=== PATIENT | male | born 1960 | race Caucasian/White ===

== ENCOUNTER 2017-06-06 09:10 | Emergency (ER) | payer OTHER ==
[2017-06-06 10:59] VITALS: BP 126/75
== END 2017-06-06 10:59 | disposition home or self-care (01) ==
LOC: ED 09:10
DX: J18.9 Pneumonia, unspecified organism (principal); F17.200 Nicotine dependence, unspecified, uncomplicated; Z71.6 Tobacco abuse counseling
CPT/HCPCS: 99406; J7613; J7644; Q0092

== ENCOUNTER 2018-04-07 17:24 | Emergency (ER) | payer OTHER ==
[~2018-04-07] VITALS: Ht 175.3 cm; Wt 55.0 kg
[2018-04-07 17:33] VITALS: Ht 175.3 cm; Wt 55.0 kg
[2018-04-07 18:57] VITALS: BP 123/73
== END 2018-04-07 18:57 | disposition home or self-care (01) ==
LOC: ED 17:24
DX: S61.102A Unspecified open wound of left thumb with damage to nail, initial encounter (principal); J45.909 Unspecified asthma, uncomplicated; F17.210 Nicotine dependence, cigarettes, uncomplicated; W22.8XXA Striking against or struck by other objects, initial encounter; Y93.89 Activity, other specified; Y92.89 Other specified places as the place of occurrence of the external cause; Y99.8 Other external cause status
CPT/HCPCS: 90715; A4570; Q0092

== ENCOUNTER 2019-01-24 20:02 | Emergency (ER) | payer OTHER ==
[~2019-01-24] VITALS: Ht 175.3 cm; Wt 54.4 kg
[2019-01-24 20:09] VITALS: Ht 175.3 cm; Wt 54.4 kg
[2019-01-24 21:06] LABS: CALCIUM 9.3 mg/dL (8.5-10.1); CARBON DIOXIDE 29.3 mmol/L (21-32); CHLORIDE SERUM 105 mmol/L (98-107); CREATININE SERUM 0.9 mg/dL (0.7-1.3); GFR1 > 60 mL/min; GLUCOSE SERUM 85 mg/dL (74-106); SODIUM SERUM 141 mmol/L (136-145)
[2019-01-24 21:36] LABS: ALBUMIN 3.6 g/dL (3.4-5.0); BILIRUBIN DIRECT 0.06 mg/dL (0.0-0.2); BILIRUBIN TOTAL 0.16 mg/dL (0.20-1.00); TOTAL PROTEIN, SERUM 7.2 g/dL (6.4-8.2)
[2019-01-24 21:55] VITALS: BP 131/46
== END 2019-01-24 21:55 | disposition home or self-care (01) ==
LOC: ED 20:02
PROVIDERS: Emergency Medicine
DX: B35.1 Tinea unguium (principal); J45.909 Unspecified asthma, uncomplicated

== ENCOUNTER 2019-03-13 10:27 | Inpatient (IN) | payer OTHER ==
[~2019-03-13] VITALS: Ht 175.3 cm; Wt 54.0 kg
[2019-03-13 10:43] VITALS: Ht 175.3 cm; Wt 54.0 kg
--- NOTE | 2019-03-13 10:43 | NUR ---
PT CAME TO ED VIA [facility]. WAS AT [facility] WHEN SUDDENLY FELT CHEST PAIN 02/22. NON RADIATING. SHARP AND FEELS LIKE IT COMES AND GOES. PAIN WORSE WITH INSPIRATION. SLIGHT SOB ON SCENE, PRESENTS NOW WITH SHALLOW BREATH. LUNGS HAVE WHEEZE AND PAIN WITH DEEP RESPIRATION. STATES TODAY HAS COUGH AND CHILLS. WAS ANXIOUS ON SCENE BUT NOW IS OKAY. 18 G TO RT AC NOTED AND PLACED BY AGRICULTURE INSPECTOR. FLUSHED WELL WITH 10CC OF NS WITH GOOD BLOOD RETURN. NO S/S OF INFILTRATION WHEN NOTED. DENIES ABD PAIN, BUT POINTS TO EPIGASTRIC AREA WHEN STATING WHERE PAIN IS AND ANTERIOR CHEST. ABLE TO FOLLOW COMMANDS.
--- NOTE | 2019-03-13 10:43 | NUR ---
WHEN PATIENT ARRIVED, APPLIED O2 NC SAT WAS 94% MD MADE AWARE AND OKAYED
[2019-03-13 11:06] LABS: BASOPHIL % 0.4 % (0-2); PLATELET COUNT 263 x10^3mcL (130-400); RED CELL DISTRIBUTION WIDTH 13.8 % (11.5-14.5)
[2019-03-13 11:18] LABS: CALCIUM 8.2 mg/dL (8.5-10.1); CARBON DIOXIDE 28.2 mmol/L (21-32); CHLORIDE SERUM 104 mmol/L (98-107); CREATININE SERUM 0.9 mg/dL (0.7-1.3); GFR1 > 60 mL/min; GLUCOSE SERUM 77 mg/dL (74-106); POTASSIUM SERUM 4.3 mmol/L (3.5-5.1); SODIUM SERUM 139 mmol/L (136-145)
[2019-03-13 11:22] LABS: ALBUMIN 3.6 g/dL (3.4-5.0); ALKALINE PHOSPHATASE 83 U/L (46-116); ALT/SGPT 15 U/L (16-63); AST/SGOT 20 U/L (15-37); BILIRUBIN TOTAL 0.4 mg/dL (0.20-1.00); CHOLESTEROL 159 mg/dL (<200); HDL CHOLESTEROL 57 mg/dL (40-60); LIPASE 98 IU/L (73-393); PHOSPHOROUS 2.7 mg/dL (2.5-4.9); URIC ACID 5.4 mg/dL (3.5-7.2)
--- NOTE | 2019-03-13 11:59 | NUR ---
PT OFF OF O2 FOR HALF HOUR AND MAINTAINING A SAT OF 98% OR ABOVE
--- NOTE | 2019-03-13 12:21 | NUR ---
PT REPORTS FEELING BETTER
[2019-03-13 13:06] LABS: CHOLESTEROL/HDL RATIO 2.9; MAGNESIUM 2.1 mg/dL (1.8-2.4)
[2019-03-13 13:12] LABS: T3 TOTAL 1.08 ng/mL
[2019-03-13 13:14] LABS: FREE T4 1.19 ng/dL (0.76-1.46)
--- NOTE | 2019-03-13 13:19 | NUR ---
REPORT GIVEN TO JACKIE HART TO RESUME CARE OF PT
[2019-03-13 13:58] VITALS: BP 130/67
--- NOTE | 2019-03-13 14:16 | NUR ---
RECEIVED PT FROM ER. PT IS A/O X4, VERBAL RESPONSIVE, ABLE TO TELL WHAT HE NEED. RIGHT EYE BLIND. LUNG SOUND CLEAR BILATERAL, OCCAIONALLY DRY COUGH, DUE TO CHRONIC SMOKE. PT IS ON TELE 19, NSR, C/O CHEST PAIN AT MID. ON AND OFF. BOWEL SOUND PRESENT ALL 4 QUADRANTS, NO DISTENTION, NO TENDER. PEDAL PULSE PRESENT BOTH FEET, NO EDEMA, IV AT LEFT AC, NO LEAKING, NO INFILTRATION. ALL ADLS ASSIST, ALL NEED MET, CALL LIGHT IN REACH, WILL CONTINUE TO MONITOR.
--- NOTE | 2019-03-13 16:09 | NUR ---
PATIENT WAS C/O PAIN TO MID EPIGATRIC 11/22, RIP BARTON MADE AWARE. RIP BARTON GAVE TELEPHONE ORDER/ READBACK FOR MORPHINE 2MG IVP Q6HP, WILL CARRY OUT ORDERS AT THIS TIME.
--- NOTE | 2019-03-13 16:18 | NUR ---
PATIENT WAS C/O OF MID-EPIGASTRIC PAIN 11/22, MEDICATED PATIENT WITH NORCO PER PROTOCOL (SEE MAR). EDUCATED PATIENT ON PAIN MANAGEMENT, EDUCATED PATIENT ON RELAXATION TECHNIQUES. WILL CONTINUE TO MONITOR.
[2019-03-13 16:55] VITALS: BP 124/74
--- NOTE | 2019-03-13 17:59 | NUR ---
PATIENT SLEEPING IN BED, NO ACUTE DISTRESS NOTED. PATIENT DENIES PAIN. DENIES SOB, ON ROOM AIR. ALL NEEDS MET. NS IV INFUSING TO LAC AT 50ML/HR, IV SITE FREE FROM REDNESS & SWELLING. CALL LIGHT WITHIN REACH, BED IN LOW POSITION.
--- NOTE | 2019-03-13 19:15 | NUR ---
SHIFT REASSESSMENT DONE.PATIENT ALERT AND ORIENTED.R EYE BLIND.ASSIST WITH ADL'S.MOVING ALL EXT WELL.NS AT 50 CC/ HOUR.TELE 19 SR.SKIN INTACT.REPORT SAY MAYBE HOMELESS,PER REPORT.WANTING ICE CHIPS,GIVEN BY DENA.NO EDEMA.CALL LIGHT IN REACH.
[2019-03-13 20:38] VITALS: BP 133/67
--- NOTE | 2019-03-13 20:48 | NUR ---
PATIENT PM MEDS GIVEN,SWALLOWS WELL.NS AT 50 CC/ HOUR.IV SITE GOOD.
--- NOTE | 2019-03-13 23:38 | NUR ---
CHECKED AT INTERVALS FOR NEEDS AND SAFETY.CALL LIGHT IN REACH.NS AT 50 CC/HOUR.CALL LIGHT IN REACH.
[2019-03-14 04:29] VITALS: BP 116/68
--- NOTE | 2019-03-14 05:17 | NUR ---
I AND O MEASURED.NO DISTRESS THIS SHIFT.WILL CONTINUE PLAN OF CARE.
[2019-03-14 06:48] LABS: BASOPHIL % 0.8 % (0-2); PLATELET COUNT 213 x10^3mcL (130-400); RED CELL DISTRIBUTION WIDTH 14.1 % (11.5-14.5)
[2019-03-14 07:31] LABS: CALCIUM 7.8 mg/dL (8.5-10.1); CARBON DIOXIDE 23.4 mmol/L (21-32); CHLORIDE SERUM 103 mmol/L (98-107); CREATININE SERUM 0.9 mg/dL (0.7-1.3); GFR1 > 60 mL/min; GLUCOSE SERUM 94 mg/dL (74-106); POTASSIUM SERUM 4.2 mmol/L (3.5-5.1); SODIUM SERUM 137 mmol/L (136-145)
[2019-03-14 08:00] VITALS: BP 119/71
[2019-03-14 11:49] VITALS: BP 118/70
[2019-03-14 16:17] VITALS: BP 131/73
--- NOTE | 2019-03-14 19:19 | NUR ---
REPORT GIVEN TO INSTRUCTION DEAN NURSE AT THE BEDSIDE, CARE ENDORSED
--- NOTE | 2019-03-14 19:20 | NUR ---
RECIEVED PT IN NO ACUTE DISTRESS. AOX4. MED SURG. DENIES CP AT THIS TIME. BREATHING E/U ON RA. NON-PRODUCTIVE COUGH. DENIES ALL OTHER PAIN. IV TO LAC, PATENT. BED IN LOWEST POSITION, 2 SIDE RAILS UP, CALL LIGHT IN REACH. INSTRUCTED TO CALL FOR ASSISTANCE.
[2019-03-14 20:07] VITALS: BP 122/72
--- NOTE | 2019-03-15 02:08 | NUR ---
RESTING WITH EYES CLOSED. BREATHING E/U. NO ACUTE DISTRESS NOTED. WILL CONTINUE TO MONITOR.
[2019-03-15 04:54] VITALS: BP 123/69
--- NOTE | 2019-03-15 07:13 | NUR ---
NO C/O EPIGASTRIC/CP OVERNIGHT. NO ACUTE DISTRESS NOTED. NO ACUTE CHANGES. WILL ENDORSE TO ONCOMING RN
--- NOTE | 2019-03-15 07:45 | NUR ---
PT LYING IN BED EYES CLOSED, AROUSABLE TO VOICE. BREATHING EQUAL/ UNLABORED ON RA. IV RUNNING AT 50ML/HR. NO REDNESS/ SWELLING AT IV SITE. BED IN LOW POSITION, CALL LIGHT IN REACH. WILL CONTINUE TO MONITOR
[2019-03-15 07:50] LABS: BASOPHIL % 0.6 % (0-2); PLATELET COUNT 205 x10^3mcL (130-400); RED CELL DISTRIBUTION WIDTH 13.9 % (11.5-14.5)
[2019-03-15 07:52] LABS: CALCIUM 8.2 mg/dL (8.5-10.1); CARBON DIOXIDE 25.4 mmol/L (21-32); CHLORIDE SERUM 108 mmol/L (98-107); CREATININE SERUM 0.8 mg/dL (0.7-1.3); GFR1 > 60 mL/min; GLUCOSE SERUM 84 mg/dL (74-106); POTASSIUM SERUM 3.9 mmol/L (3.5-5.1); SODIUM SERUM 142 mmol/L (136-145)
[2019-03-15 09:12] VITALS: BP 105/61
[2019-03-15] MEDS ORDERED: GOOD SENSE ASPI81 M3 PO (10:34)
[2019-03-15] MEDS ORDERED: LIPI10 PO (10:34)
--- NOTE | 2019-03-15 11:40 | NUR ---
PT LYING IN BED A/A. BREATHING EQUAL/ UNLABORED ON RA. IVF RUNNING AT 50 ML/HR. NO REDNESS/ SWELLING TO IV SITE. EPIGASTRIC PAIN 06/24. PT RESTING COMFORTABLY IN BED WITH NO DISTRESS. BED IN LOW POSITION, CALL LIGHT IN REACH, WILL CONTINUE TO MONITOR
[2019-03-15 11:51] VITALS: BP 105/61
--- NOTE | 2019-03-15 13:27 | NUR ---
PT A/A, ORIENTED X 4. BREATHING EQUAL/ UNLABORED. NO ACUTE DISTRESS. EDUCATION PROVIDED TO PT, PT VERBALIZED UNDERSTANDING. PT AWARE OF F/U APPT WITH PCP. GAVE PT NEW RX. BELONGINGS WITH PT. PT WAITING FOR RIDE
--- NOTE | 2019-03-15 14:02 | NUR ---
PT DISCHARGED TO HOME IN NO ACUTE DISTRESS. AWAKE, ALERT, AND ORIENTED. TRANSPORTED VIA WHEELCHAIR. IV DC'D WITH CATHETER INTACT. BELONGINGS WITH PT. SYD HART ACCOMPANIED PT TO DISCHARGE OFFICE.
== END 2019-03-15 13:56 | disposition home or self-care (01) | DRG 203 ==
LOC: ED 10:27 → DU 12:35 → MU 03-14 15:26
PROVIDERS: Emergency Medicine; ADMIT General Practice
DX: R07.89 Other chest pain (principal); F17.210 Nicotine dependence, cigarettes, uncomplicated; J45.909 Unspecified asthma, uncomplicated; I35.1 Nonrheumatic aortic (valve) insufficiency
CPT/HCPCS: 84439; 90658; 90732; G0378; J1885; J7030; Q0092